=== PATIENT | female | born 1975 | race Caucasian/White ===

== ENCOUNTER 2018-03-12 04:25 | Emergency (ER) | payer SELFPAY ==
[~2018-03-12] VITALS: Ht 160 cm; Wt 93.9 kg
--- NOTE | 2018-03-12 04:25 | NUR ---
[facility] POST OP GASTRIC SLEEVE: L SIDED CP PRESSURE RADIATING TO LEFT SIDE. 162 ASA AND X2 NITRO SL EN ROUTE GIVEN WITH NO RELIEF. VSS NO ACUTE DISTRESS NOTED AT THIS TIME. SKIN WARM AND INTACT. BREATHING PATTERN WNL WITH ADEQUATE CHEST RISE/FALL. WILL CONTINUE TO MONITOR FOR ANY CHANGES DURING THE SHIFT.
--- NOTE | 2018-03-12 04:26 | NUR ---
ER MD AVITIA AT BEDSIDE
--- NOTE | 2018-03-12 05:41 | NUR ---
PT STATING "I WANT TO LEAVE" THERAPEUTIC COMMUNICATION DONE INTERVENTION
--- NOTE | 2018-03-12 05:49 | NUR ---
EKG WAS REFUSED AND PATIENT HAS BEEN D/C FROM THE FACILITY. Addendum: 03/12/18 at 0556 by BRANDEE PATIENT DID NOT GET DISCHARGED. PATIENT HAS LEFT AGAINST MEDICAL ADVICE.
[2018-03-12 05:52] VITALS: BP 131/91
== END 2018-03-12 05:52 | disposition left against medical advice (07) ==
LOC: ER 04:26
DX: R07.89 Other chest pain (principal); F32.9 Major depressive disorder, single episode, unspecified
CPT/HCPCS: 71045; 93005; 99284; A4606; Z7610